=== PATIENT | female | born 1940 | race Caucasian/White ===

== ENCOUNTER 2018-08-03 21:12 | Emergency (ER) | payer MEDICARE, BC ==
[2018-08-03 22:13] VITALS: BP 165/93; PULSE 82; O2SAT 98
[2018-08-03] MEDS ORDERED: BENADRYL 50 MG/ML IV ONE (22:13)
--- NOTE | 2018-08-03 22:16 | ERPHSYRPT ---
- History of Present Illness Time Seen by Provider: 08/03/18 22:13 Source: patient Exam Limitations: no limitations Patient Subjective Stated Complaint: Pt states approx 1999 today she was brushing her teeth and felt she had a sore spot on the left side of her tongue "like I had bit my tongue", shortly after she noticed tongue swelling, attempted to reduce swelling with ice water with no improvement. pt states after arriving to ed it has started to improve Triage Nursing Assessment: [place]/warm/dry, resp easy, a&ox4, speech clear, steady gait, swollen tongue noted more so on the right. Physician History: 78-year-old white female arrives with complaint of swelling of her tongue for 2- 3 hours. She states she felt like she had swelling of her tongue after brushing her teeth she states she felt like she was having problems swallowing. She states she feels like she is getting better now. Past medical history is negative. Past surgical history is negative. Social history denies tobacco alcohol or illicit drug use. Timing/Duration: today (2-3 hours) Severity: moderate Modifying Factors: Improves With: nothing Associated Symptoms: other (swelling of tongue), No nausea, No vomiting, No abdominal pain, No shortness of breath, No heartburn, No diaphoresis, No cough, No chills, No chest pain, No fever, No headaches, No loss of appetite, No malaise, No rash, No syncope, No seizure, No weakness Allergies/Adverse Reactions: Sulfa (Sulfonamide Antibiotics) Allergy (Verified 08/03/18 22:00) Home Medications: Aspirin [Aspirin EC] 81 mg PO DAILY 08/03/18 [History] Multivitamin [Multivitamins] 1 cap PO DAILY 08/03/18 [History] Hx Tetanus, Diphtheria Vaccination/Date Given: Yes Hx Influenza Vaccination/Date Given: Yes Hx Pneumococcal Vaccination/Date Given: Yes Immunizations Up to Date: Yes - Review of Systems Constitutional: No Fever, No Chills Eyes: No Symptoms Ears, Nose, & Throat: Mouth Swelling (tongue swelling), No Ear Pain, No Ear Discharge, No Hearing Changes, No Tinnitus, No Nose Pain, No Nose Congestion, No Nose Discharge, No Sinus Drainage, No Epistaxis, No Mouth Pain Respiratory: No Cough, No Dyspnea Cardiac: No Chest Pain, No Edema, No Syncope Abdominal/Gastrointestinal: No Abdominal Pain, No Nausea, No Vomiting, No Diarrhea Genitourinary Symptoms: No Dysuria Musculoskeletal: No Back Pain, No Neck Pain Skin: No Rash Neurological: No Dizziness, No Focal Weakness, No Sensory Changes Psychological: No Symptoms Endocrine: No Symptoms All Other Systems: Reviewed and Negative - Past Medical History Pertinent Past Medical History: No - Past Surgical History Past Surgical History: No - Social History Smoking Status: Never smoker Exposure to second hand smoke: No Drug Use: none Patient Lives Alone: No - Female History Hx Now: No - Nursing Vital Signs Nursing Vital Signs: Initial Vital Signs Temperature 97.2 F 08/03/18 22:02 Pulse Rate 82 08/03/18 22:02 Respiratory Rate 16 08/03/18 22:02 Blood Pressure 165/93 08/03/18 22:02 O2 Sat by Pulse Oximetry 98 08/03/18 22:02 Pain Scale Pain Intensity 0 - Physical Exam General Appearance: no apparent distress, alert Eye Exam: PERRL/EOMI, eyes nml inspection Ears, Nose, Throat Exam: TMs normal, pharynx normal, moist mucous membranes, dry mucous membranes, TM abnormal (R), TM abnormal (L), pharyngeal erythema, tonsillar exudate, other (mild sewlling of tongue) Neck Exam: normal inspection, non-tender, supple, full range of motion Respiratory Exam: normal breath sounds, lungs clear, No respiratory distress Cardiovascular Exam: regular rate/rhythm, normal heart sounds, normal peripheral pulses, capillary refill <2 sec Gastrointestinal/Abdomen Exam: soft, normal bowel sounds, No tenderness, No mass Back Exam: normal inspection, normal range of motion, No CVA tenderness, No vertebral tenderness Extremity Exam: normal inspection, normal range of motion, pelvis stable Neurologic Exam: alert, oriented x 3, cooperative, 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, normal mood/affect, nml cerebellar function, nml station & gait, sensation nml, No motor deficits Skin Exam: normal color, warm, dry, No rash Lymphatic Exam: No adenopathy SpO2 Interpretation: normal (98%) SpO2: 98 - Course Nursing assessment & vital signs reviewed: Yes Ordered Tests: Medication Summary Discontinued Medications Generic Name Dose Route Start Last Admin Trade Name Freq PRN Reason Stop Dose Admin Diphenhydramine HCl 25 mg 08/03/18 22:13 08/03/18 22:39 Benadryl 50 Mg/Ml IV 08/03/18 22:14 25 mg STAT ONE Administration Diphenhydramine HCl Confirm 08/03/18 22:31 Benadryl 50 Mg/Ml Administered 08/03/18 22:32 Dose 50 mg .ROUTE .STK-MED ONE Methylprednisolone Sodium Succinate 125 mg 08/03/18 22:13 08/03/18 22:47 Solu-Medrol 125 Mg IV 08/03/18 22:14 Not Given STAT ONE Methylprednisolone Sodium Succinate Confirm 08/03/18 22:31 Solu-Medrol 125 Mg Administered 08/03/18 22:32 Dose 125 mg .ROUTE .STK-MED ONE - Progress Progress: improved Progress Note: 08/03/18 22:48 Patient is feeling better. Tongue swelling markedly improved with Benadryl 25 mg IM patient refused Solu- Medrol. I've offered to give the patient prednisone tapering dose she does not want this either. I told the patient that if she has tongue swelling this could occlude her airway. She states that she feels better and wants to go home. Will discharge patient I've advised patient to take Benadryl 25-50 mg orally every 6 hours for 2-3 days I have advised her to stop using the toothpaste that she used today. And she needs to go through all her daily activities and elevate any new foods that she might have had. She is advised to return for any problems especially drainage swelling of her tongue,. - Departure Departure Disposition: Home Clinical Impression: Tongue swelling Condition: Fair Critical Care Time: No Referrals: KARLIE LAMAS [Primary Care Provider] - Additional Instructions: Return home. Benadryl 25-50 mg orally every 6 hours. Return if recurrent symptoms or for any problems. Followup with your family Dr.. Return for acute distress or for severe symptoms. Tongue swelling can occlude your airway it is important to followup and be checked if you notice your having tongue swelling.
[2018-08-03] MEDS ORDERED: solu-MEDROL 125 MG ONE (22:31)
[2018-08-03] MEDS ORDERED: BENADRYL 50 MG/ML ONE (22:31)
[2018-08-03] MEDS: solu-MEDROL 125 MG IV ONE ×2 (22:40→22:47)
== END 2018-08-03 23:02 | disposition home or self-care (01) ==
LOC: ED 21:12
DX: R22.0 Localized swelling, mass and lump, head (principal)
CPT/HCPCS: 96374; 99283; J1200; J2930